=== PATIENT | female | born 1975 | race Caucasian/White ===

== ENCOUNTER → 2019-08-03 17:39 | Outpatient (CLI) | payer OTHER, SELFPAY ==
--- NOTE | ~2019-08-03 | MM_ITS ---
EXAMINATION: MM screening jeremy BI w omaira HISTORY: Screening mammogram TECHNIQUE: Craniocaudal and mediolateral oblique 3-D tomosynthesis images were obtained and synthetic 2-D images were generated. CAD analysis was submitted and interpreted. COMPARISON: None, baseline BREAST PARENCHYMAL COMPOSITION: There are scattered areas of fibroglandular density. FINDINGS: There is no evidence of suspicious mass, calcification, or architectural distortion to sugg est malignancy in either breast. IMPRESSION: 1. No mammographic evidence of malignancy. 2. Recommend routine screening mammography in one year. BI-RADS Category 1: Negative Reviewed, dictated and finalized at location A. STMENT ACCOUNTING CLERK
== END ==
PROVIDERS: Visit Provider Obstetrics & Gynecology
DX: Z12.31 Encounter for screening mammogram for malignant neoplasm of breast (principal)
CPT/HCPCS: 77063; 77067

== ENCOUNTER 2020-04-03 09:59 | Outpatient (RCR) | payer OTHER, SELFPAY ==
--- NOTE | 2020-04-03 11:12 | OTOPEVAL ---
OCCUPATIONAL THERAPY EVALUATION:04/03/2020 Thank you for referring Danitza Chatman to [facility].? The patient is scheduled to be seen for therapy? 1x/week for 4 weeks. Please review, sign, date and return this plan of care MARIIA. I agree with and certify that the following plan of care is medically necessary. 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 Subjective Information Pt reports pain in lateral Query Text:As Reported By Patient/ aspect of elbow, proximal to Family elbow, distal to elbow which has caused pain with gripping grasping objects, lifting items. 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 in addition to pain with supination/pronation of R arm Prior Level of Function Activity Level (Last 3 Months) Occupation preschool Hand Dominance Right Activity of Daily Living Ability Independent Indoor/Home Mobility Independent Community Mobility Independent Stairs Ability Independent Functional Cognition (Planning, Shopping Independent , Taking Medications) Cooking Yes Cleaning Yes Laundry Yes Shopping Yes Driving Yes Home Setting Home Type House Environmental Barriers Stairs, Greater than 4 Living Situation With Minor Child,With Spouse Mobility Assistive Devices (Used Last 3 None Months) Pain Assessment Timing of Pain Assessment Timing of Pain Assessment Assessment Pain Scale Pain Scale Used Numeric (1 - 10) Self Report Pain Assessment Right Elbow(s) Reported Pain Level 2 Pain Description Dull,Pressure,Tightness Lowest Pain Intensity 2
--- NOTE | 2020-05-12 07:44 | OTOPEVAL ---
OCCUPATIONAL THERAPY DISCHARGE SUMMARY: 05/12/2020 Danitza attending Initial Evaluation for Occupational Therapy on 04/03/2020 and was scheduled to be seen for therapy 1x/week for 4 weeks for treatments. Patient did not follow up and schedule any further treatments since Initial Evaluation. This will serve as patient discharge from Occupational Therapy with goals not met. Thank you for referring Danitza Chatman to [facility].?Please review, sign, date and return this plan of care MARIIA. I agree with and certify that the following plan of care is medically necessary. Referring Physician Date Attending Provider: Oliver Trejo MD
== END 2020-05-12 09:42 | disposition home or self-care (01) ==
LOC: ANHOT 09:59
PROVIDERS: PCP Family Medicine; Visit Provider Orthopaedic Surgery
DX: G56.31 Lesion of radial nerve, right upper limb (principal)
CPT/HCPCS: 97165